=== PATIENT | female | born 1965 | race Caucasian/White ===

== ENCOUNTER → 2016-09-01 | Outpatient (CLI) | payer OTHER ==
--- NOTE | 2016-09-01 12:18 | CT ---
EXAMINATION TYPE: CT ChestAbdPelvis w con DATE OF EXAM: 09/01/2016 COMPARISON: Previous study dated 02/29/2016. HISTORY: Patient has no complaints at time of service. Follow up study for known ovarian CA. CT DLP: 726.9 mGycm Automated exposure control for dose reduction was used. TECHNIQUE: Helical acquisition through the abdomen and pelvis was obtained without oral contrast but following the intravenous administration of 100 mL of Omnipaque 300. The data was formatted in the a xial, coronal and sagittal projections. FINDINGS: The lungs are clear. There is no significant axillary, internal mammary, mediastinal or hilar adenopathy. There is no pleu ral or pericardial fluid. The heart is upper limits of normal in size. Within the abdomen, there is mild fatty infiltration of the liver. The spleen and gallbladder are nor mal. Both adrenal glands are normal. The right kidney is normal. There is a stable 6.3 mm low attenuating lesion in the anterior aspect of the mid polar region of the left kidney. This is too small accurately characterize. The pancreas is normal. There is no significant retroperitoneal, iliac or inguinal adenopathy. The uterus and ovaries are not visualized. The bladder is unremarkable. There is no significant diverticular change and there is no radiographic evidence of diverticulitis. The appendix is normal. There is a midline ventral hernia above the level of the umbilicus with a 27 mm mouth. This contains nonobstructed small bowel. The remainder the small bowel looks normal. No free fluid and no free air is seen. There is minimal hypertrophic spondylosis within the dorsal spine. No bony destructive lesion is seen . IMPRESSION: 1. NO EVIDENCE OF RECURRENT OR METASTATIC CANCER. 2. FATTY INFILTRATION OF THE LIVER. 3. STABLE, 6.3 MM LESION IN THE MID POLAR REGION OF THE LEFT KIDNEY TOO SMALL TO CHARACTERIZE ACCURAT PING. 4. MIDLINE VENTRAL HERNIA CONTAINING UNOBSTRUCTED SMALL BOWEL, UNCHANGED FROM PREVIOUS.
== END | disposition home or self-care (01) ==
LOC: RADPROMAIN 11:37
PROVIDERS: ATTEND Internal Medicine Hematology & Oncology
DX: C56.9 Malignant neoplasm of unspecified ovary (principal); K76.0 Fatty (change of) liver, not elsewhere classified; K43.9 Ventral hernia without obstruction or gangrene; N28.9 Disorder of kidney and ureter, unspecified
CPT/HCPCS: 71260; 74177; Q9967; J1642

== ENCOUNTER → 2017-04-02 | Outpatient (CLI) | payer BC ==
--- NOTE | 2017-04-02 09:45 | CT ---
EXAMINATION TYPE: CT ChestAbdPelvis w con DATE OF EXAM: 04/02/2017 COMPARISON: 09/01/2016 HISTORY: Patient has no complaints at time of study. Follow up study for known ovarian CA. CT DLP: 1436 mGycm. Automated Exposure Control for Dose Reduction was Utilized. CONTRAST: CT scan of the thorax, abdomen and pelvis is performed with IV Contrast, patient injected with 100 mL of Omnipaque 300. FINDINGS: LUNGS: The lungs are grossly clear, there is no concerning parenchymal mass or nodule identified. T here is no pleural effusion or pneumothorax seen. The tracheobronchial tree is patent. MEDIASTINUM: There are no greater than 1 cm hilar or mediastinal lymph nodes. No pericardial effusi on is seen. Right-sided Mediport terminates in the superior vena cava/right atrial junction. There i s a normal anatomic branch pattern of the great vessels. OTHER: No suspicious osseous lesions. No supraclavicular adenopathy. LIVER/GB: Hepatic parenchyma is diffusely hypoattenuated in comparison to that of the spleen, most co mmonly seen in hepatic steatosis. This finding limits evaluation for hepatic masses. No gross evidenc e of hepatic mass is seen. No intrahepatic biliary ductal dilatation. No cholelithiasis. PANCREAS: No significant abnormality is seen. SPLEEN: No significant abnormality is seen. ADRENALS: No significant abnormality is seen. KIDNEYS: The previously seen approximately 6 mm hypoattenuated cortical lesion of the anterior left m idpole of the kidney is similar and too small to accurately characterize. BOWEL: Ventral abdominal hernia described below. No evidence of bowel dilatation. Surgical anastomoti c site of the left mid abdomen is noted within small bowel. GENITAL ORGANS: There is surgical absence of the uterus and ovaries. No local soft tissue mass is see n to suggest neoplastic recurrence. Precervical soft tissues are unremarkable. Urinary bladder pisano appear smooth. No evidence of rectal thickening. Mesial rectal fat is clear. LYMPH NODES: No greater than 1cm abdominal or pelvic lymph nodes are appreciated. No pelvic sidewall, external iliac, or internal iliac adenopathy. Multiple nonenlarged periaortic lymph nodes are seen i n scattered mesenteric nonenlarged lymph nodes, similar to the prior exam. OSSEOUS STRUCTURES: Minimal multilevel degenerative changes of the visualized thoracolumbar and lumbo sacral spine are noted. No suspicious osseous lesions. Stable punctate probable bone island in the le ft femoral head is noted. OTHER: There is redemonstration of a ventral abdominal hernia superimposed upon diastases recti conta ining approximate 3.9 cm wide neck. This extends over a 0.6 cm in craniocaudal dimension and contains loops of small bowel. No evidence of entrapment on CT as there is no proximal dilatation or pneumato sis intestinalis. No decompression of the exiting loops. IMPRESSION: 1. No evidence of visceral metastasis, adenopathy, or osseous metastasis within the chest, abdomen or pelvis. 2. Redemonstration of hepatic steatosis, too small to accurately characterize left renal lesion, and ventral abdominal hernia containing loops of small bowel without dilatation to suggest current incarc eration.
== END | disposition home or self-care (01) ==
LOC: RADPROMAIN 08:28
PROVIDERS: ATTEND Internal Medicine Hematology & Oncology
DX: K76.0 Fatty (change of) liver, not elsewhere classified (principal); K43.9 Ventral hernia without obstruction or gangrene; N32.89 Other specified disorders of bladder; C56.2 Malignant neoplasm of left ovary; Z88.8 Allergy status to other drugs, medicaments and biological substances
CPT/HCPCS: 71260; 74177; Q9967; J1642

== ENCOUNTER → 2018-02-17 | Outpatient (CLI) | payer BC ==
--- NOTE | 2018-02-17 13:45 | CT ---
EXAMINATION TYPE: CT ChestAbdPelvis w con DATE OF EXAM: 02/17/2018 INDICATION: Follow up for ovarian CA. COMPARISON: 04/02/2017 CT DLP: 645.7 mGycm CONTRAST: Performed with Oral Contrast and with IV Contrast, patient injected with 100 mL of Isovue 300. TECHNIQUE: Axial images at 5 mm thick sections. Reconstructed images in the coronal plane. Delayed images through the kidneys. FINDINGS: CT CHEST: Portion of the thyroid visualized is normal. No suspicious lung nodules or focal infiltrates are present. No enlarged mediastinal or hilar adenopathy is evident. The ascending aorta diameter at the level of the main pulmonary artery is 3. cm. The main pulmonary artery diameter at the bifurcation is 1.[address] ABDOMEN: There is an anterior abdominal wall hernia in periumbilical region containing loops of co marcos. No obstruction is evident. A second more superior herniation contains more loops of bowel withou t obstruction Liver: Normal Spleen: Normal Pancreas: Normal Adrenal glands: The adrenal glands are normal. Gallbladder: Normal Kidneys: No masses are evident. No hydronephrosis is present. No cysts are present. Delayed images were obtained through the kidneys, which remain unremarkable. Aorta: Normal Inferior vena cava: Normal. CT PELVIS: Loops of bowel within the abdomen and pelvis are normal. There are loops of bowel which are incom pletely distended or lack oral contrast limiting their evaluation. Fecal debris is in the distal colo n. Appendix: Normal as visualized. Urinary bladder: Normal. Genitourinary structures: Uterus and ovaries are surgically absent. No suspicious masses or fluid col lections or omental caking is evident. Osseous structures: No suspicious lytic or sclerotic lesions. IMPRESSIONS: 1. No suspicious changes to suggest recurrent or metastatic ovarian carcinoma. 2. Anterior abdominal wall hernia containing nonobstructed loops of bowel
== END | disposition home or self-care (01) ==
LOC: RADCTMAIN 07:04
PROVIDERS: ATTEND Internal Medicine Hematology & Oncology
DX: Z03.89 Encounter for observation for other suspected diseases and conditions ruled out (principal); C56.2 Malignant neoplasm of left ovary; K43.9 Ventral hernia without obstruction or gangrene; Z88.8 Allergy status to other drugs, medicaments and biological substances
CPT/HCPCS: 71260; 74177; J1642; Q9967

== ENCOUNTER → 2018-08-24 | Outpatient (CLI) | payer BC ==
--- NOTE | 2018-08-24 15:20 | CT ---
EXAMINATION TYPE: CT ChestAbdPelvis w con DATE OF EXAM: 08/24/2018 COMPARISON: PET/CT February 10, 2015. CT chest abdomen pelvis February 17, 2018 and older studies. HISTORY: Follow up ovarian cancer. CT DLP: 730.6 mGycm. Automated Exposure Control for Dose Reduction was Utilized. CONTRAST: CT scan of the thorax, abdomen and pelvis is performed with oral and with IV Contrast, patient inject ed with 100 mL of Isovue M300. FINDINGS: LUNGS: The lungs are grossly clear, there is no concerning parenchymal mass or nodule identified. T here is no pleural effusion or pneumothorax seen. The tracheobronchial tree is patent. MEDIASTINUM: There are no greater than 1 cm hilar or mediastinal lymph nodes. No cardiomegaly or pe ricardial effusion is seen. OTHER: Stable right internal jugular Mediport catheter terminating in SVC. LIVER/GB: No significant abnormality is appreciated. PANCREAS: No significant abnormality is seen. SPLEEN: No significant abnormality is seen. ADRENALS: No significant abnormality is seen. KIDNEYS: No significant abnormality is seen. BOWEL: Oral contrast stops just short of terminal ileum making evaluation of distal bowel suboptimal. No suspicious small or large bowel dilatation is present. GENITAL ORGANS: Uterus is surgically absent. Surgical clips in left pelvis are redemonstrated. LYMPH NODES: No greater than 1cm abdominal or pelvic lymph nodes are appreciated. OSSEOUS STRUCTURES: Some facet arthropathy lower lumbar spine. OTHER: Midline vertical scar is redemonstrated with bowel containing incisional hernia just above umb ilicus again seen. IMPRESSION: Redemonstration of surgical change from resection of left mid abdominal metastatic focus. No new mass or adenopathy identified to suggest neoplastic recurrence.
== END ==
LOC: RADCTMAIN 12:02
PROVIDERS: ATTEND Internal Medicine Hematology & Oncology
DX: C56.2 Malignant neoplasm of left ovary (principal); Z88.8 Allergy status to other drugs, medicaments and biological substances
CPT/HCPCS: 71260; 74177; Q9967 ×2

== ENCOUNTER → 2019-04-18 | Outpatient (CLI) | payer BC ==
--- NOTE | 2019-04-19 07:09 | CT ---
EXAMINATION TYPE: CT ChestAbdPelvis w con DATE OF EXAM: 04/18/2019 COMPARISON: CT chest abdomen and pelvis August 24, 2018 and older CTs. PET/CT dated February 10, 2015. HISTORY: Follow up for ovarian cancer. CT DLP: 809.5 mGycm. Automated Exposure Control for Dose Reduction was Utilized. CONTRAST: CT scan of the thorax, abdomen and pelvis is performed with oral and with IV Contrast, patient inject ed with 100ml mL of Isovue 300. FINDINGS: LUNGS: The lungs are grossly clear, there is no concerning parenchymal mass or nodule identified. T here is no pleural effusion or pneumothorax seen. The tracheobronchial tree is patent. MEDIASTINUM: There are no greater than 1 cm hilar or mediastinal lymph nodes. No pericardial effusi on is seen. Heart size stable and upper limits of normal. Coronary stents are felt present in the LA D and RCA distributions. OTHER: Stable right internal jugular Mediport catheter. LIVER/GB: No significant abnormality is appreciated. PANCREAS: No significant abnormality is seen. SPLEEN: No significant abnormality is seen. ADRENALS: No significant abnormality is seen. KIDNEYS: No significant abnormality is seen. BOWEL: Persistent ventral wall incisional hernia in the midline above the umbilicus containing contra st-filled small bowel loops seen best on coronal image 5. Oral contrast on current study reaches near level of the terminal ileum. No suspicious small or large bowel dilatation. GENITAL ORGANS: Uterus is surgically absent. Surgical clips left pelvis near axial image 106 are rede monstrated. Suspicious new 10 mm anterior left pelvic lesion axial image 108 on sagittal images is be tter seen external to the bladder with local mass effect for reference sagittal image 68 and coronal image 43. LYMPH NODES: No additional new greater than 1cm abdominal or pelvic lymph nodes are appreciated. Surg ical clips left periaortic region just before iliac bifurcation axial image 78 are redemonstrated. OSSEOUS STRUCTURES: Facet arthropathy lower lumbar spine again seen. OTHER: No significant additional abnormality is seen. IMPRESSION: New 1.0 cm left pelvic enhancing soft tissue focus strongly concerning for intraperitone al neoplastic recurrence.
== END | disposition home or self-care (01) ==
LOC: RADCTMAIN 14:24
PROVIDERS: ATTEND Internal Medicine Hematology & Oncology
DX: Z03.89 Encounter for observation for other suspected diseases and conditions ruled out (principal); C56.2 Malignant neoplasm of left ovary; R93.41 Abnormal radiologic findings on diagnostic imaging of renal pelvis, ureter, or bladder; Z88.8 Allergy status to other drugs, medicaments and biological substances
CPT/HCPCS: 71260; 74177; Q9967

== ENCOUNTER → 2019-08-15 | Outpatient (CLI) | payer BC ==
--- NOTE | 2019-08-15 16:11 | CT ---
EXAMINATION TYPE: CT ChestAbdPelvis w con DATE OF EXAM: 08/15/2019 COMPARISON: 04/18/2019 and 08/24/2018 HISTORY: Ovarian cancer. CT DLP: 703 mGycm. Automated Exposure Control for Dose Reduction was Utilized. CONTRAST: CT scan of the thorax, abdomen and pelvis is performed with IV Contrast, patient injected with 100 mL of Isovue M300. FINDINGS: LUNGS: The lungs are grossly clear, there is no concerning parenchymal mass or nodule identified. T here is no pleural effusion or pneumothorax seen. The tracheobronchial tree is patent. MEDIASTINUM: There are no greater than 1 cm hilar or mediastinal lymph nodes. No pericardial effusi on is seen. OTHER: Right-sided Mediport is redemonstrated. LIVER/GB: Hepatic parenchyma is diffusely hypoattenuated in comparison to that of the spleen, most co mmonly seen in hepatic steatosis. This finding limits evaluation for hepatic masses. No gross evidenc e of hepatic mass is seen. No intrahepatic biliary ductal dilatation. No radiopaque calculi in the ga llbladder on CT. PANCREAS: No significant abnormality is seen. SPLEEN: No significant abnormality is seen. ADRENALS: No significant abnormality is seen. KIDNEYS: Punctate to small to accurately characterize left renal lesion measures 4 mm in the anterior cortex of the midpole. No hydronephrosis of either kidney. BOWEL: Again the ventral wall incisional hernia contains loops of small bowel and closely opposing lo ops of large bowel are also seen. Correlate clinically for reducibility. GENITAL ORGANS: The uterus is surgically absent as is the left ovary with adnexal surgical clips on t he left. The right ovary is presumably surgically absent as it is not seen. LYMPH NODES: No greater than 1cm abdominal or pelvic lymph nodes are appreciated. OSSEOUS STRUCTURES: Nonspecific sclerotic foci are seen of the left femoral head. Mild multilevel deg enerative change of the spine. OTHER: There is a hyperdense, likely enhancing 1.4 x 1.2 cm nodule along the urinary bladder dome raúl sely associated with the redundant sigmoid colon on coronal image 39 however no definitive fistulizat ion is seen as there is no air in the urinary bladder at this time. Peritoneal implant again is a con sideration, especially given the interval growth. This previously measured 1.0 cm. IMPRESSION: 1. Interval growth of the hyperdense, likely enhancing, nodule along the left lateral urinary bladder dome closely abutting the sigmoid colon. Finding is highly concerning for solitary metastatic perit foote implant given the enlarging size. No current fistulization between the sigmoid colon and urinar y bladder is definitely seen at this time as there is no air in the urinary bladder. 2. Redemonstration of a bowel containing ventral abdominal hernia. Ensure clinical reducibility.
== END | disposition home or self-care (01) ==
LOC: RADCTMAIN 13:31
PROVIDERS: ATTEND Internal Medicine Hematology & Oncology
DX: K43.9 Ventral hernia without obstruction or gangrene (principal); C56.2 Malignant neoplasm of left ovary; Z88.8 Allergy status to other drugs, medicaments and biological substances
CPT/HCPCS: 71260; 74177; Q9967 ×2

== ENCOUNTER → 2019-09-27 | Outpatient (CLI) | payer BC ==
--- NOTE | 2019-09-27 13:41 | CT ---
EXAMINATION TYPE: CT ChestAbdPelvis w con DATE OF EXAM: 09/27/2019 COMPARISON: 08/15/2019 and 04/18/2019 HISTORY: 53-year-old female follow up ovarian cancer, abnormal prior TECHNIQUE: Contiguous axial scanning of the chest, abdomen, and pelvis performed with IV Contrast, pa tient injected with 100 mL of Isovue 300. Delayed images through the kidneys were obtained. Coronal/s agittal reconstructions performed. CT DLP: 1408 mGycm Automated exposure control for dose reduction was used. FINDINGS: CHEST: Are normal size without pericardial effusion. Aorta normal caliber with conventional chest branching anatomy. Right anterior chest wall injection p ort with catheter tip at the mid SVC level. No thoracic lymphadenopathy by CT size criteria. No consolidation or pleural effusion. No suspicious pulmonary nodules. ABDOMEN: There may be some degree of underlying fatty infiltration of the liver. Portal venous system is paten t. No focal liver lesion or biliary ductal dilatation. Gallbladder, adrenal glands, kidneys, spleen, pancreas appear within normal limits. There is a stable umbilical hernia containing a nonobstructed loop of small bowel. The hernia measure s 3.3 cm wide. No mesenteric or retroperitoneal lymphadenopathy. Staple line left mid abdomen from prior small bowel resection and reanastomosis. No dilated small bow el, free fluid, or free air. Moderate stool burden. Oral contrast progressed to the proximal transverse colon. No pericolic inflam matory change. Redundant distal sigmoid. PELVIS: Bladder distended. Irregular 1.8 x 1.7 cm soft tissue nodule along the left bladder dome serosa measu res 2.0 cm craniocaudal on coronal image 46. (Previously measured 1.5 x 1.4 x 1.8 cm on 08/15/2019 and 1.2 x 1.0 x 1.1 cm on 04/18/2019). Patient is status post hysterectomy and bilateral salpingo-oophore ctomies. Otherwise, no pelvic lymphadenopathy is seen. Surgical clips in the left side of the pelvis. No abnormal fluid collection in the pelvis. BONES: Mild degenerative change of both hips. Mild endplate spondylosis lower thoracic spine. Partially visu alized cervical spondylosis. No osseous destructive process. IMPRESSION: 1. CONTINUED SLOW ENLARGEMENT OF THE METASTATIC DEPOSIT ALONG THE LEFT BLADDER DOME. CURRENTLY MEASUR ING 2.0 X 1.8 X 1.7 CM ( COMPARED TO 1.2 X 1.1 X 1.0 CM BACK ON 04/18/2019). 2. OTHERWISE, NO OTHER SITES OF METASTATIC DISEASE ARE IDENTIFIED IN THE CHEST, ABDOMEN, OR PELVIS.
== END | disposition home or self-care (01) ==
LOC: RADCTMAIN 10:55
PROVIDERS: ATTEND Internal Medicine Hematology & Oncology
DX: N32.89 Other specified disorders of bladder (principal); C79.11 Secondary malignant neoplasm of bladder; C56.2 Malignant neoplasm of left ovary; Z88.8 Allergy status to other drugs, medicaments and biological substances
CPT/HCPCS: 71260; 74177; Q9967 ×2

== ENCOUNTER → 2019-11-17 | Outpatient (CLI) | payer BC ==
--- NOTE | 2019-11-17 11:48 | ECHOF ---
Referral Reason:Z01.818 pre chemo MEASUREMENTS -------- HEIGHT: 152.4 cm WEIGHT: 70.3 kg BP: RVIDd: 2.9 cm (< 3.3) IVSd: 1.1 cm (0.6 - 1.1) LVIDd: 3.5 cm (3.9 - 5.3) LVPWd: 1.1 cm (0.6 - 1.1) IVSs: 1.2 cm LVIDs: 2.8 cm LVPWs: 1.3 cm LA Diam: 2.8 cm (2.7 - 3.8) LAESV Index (A-L): 18.35 ml/m Ao Diam: 2.0 cm (2.0 - 3.7) AV Cusp: 2.0 cm (1.5 - 2.6) LA Diam: 3.1 cm (2.7 - 3.8) MV EXCURSION: 20.651 mm (> 18.000) MV EF SLOPE: 119 mm/s (70 - 150) EPSS: 0.3 cm MV E Claudy: 0.46 m/s MV DecT: 208 ms MV A Claudy: 0.50 m/s MV E/A Ratio: 0.92 RAP: 5.00 mmHg RVSP: 22.46 mmHg FINDINGS -------- Sinus rhythm. This was a technically good study. The left ventricular size is normal. Overall left ventricular systolic function is mildly impaired with, an EF between 45 - 50 %. The right ventricle is normal in size. The left atrial size is normal. The right atrial size is normal. The aortic valve is trileaflet, and appears structurally normal. No aortic stenosis or regurgitation. There is trace mitral regurgitation. Mild tricuspid regurgitation present. Right ventricular systolic pressure is normal at < 35 mmHg. There is no pulmonic regurgitation present. The aortic root size is normal. There is no pericardial effusion. CONCLUSIONS -------- 1. The left ventricular size is normal. 2. Overall left ventricular systolic function is mildly impaired with, an EF between 45 - 50 %. 3. The right ventricle is normal in size. 4. The left atrial size is normal. 5. The right atrial size is normal. 6. There is trace mitral regurgitation. 7. Mild tricuspid regurgitation present. ELECTRICAL ELECTRONICS TECHNICIAN: Hoda Abdi RDCS
== END | disposition home or self-care (01) ==
LOC: RADECHMAIN 08:17
PROVIDERS: ATTEND Internal Medicine Hematology & Oncology
DX: Z01.818 Encounter for other preprocedural examination (principal); I07.1 Rheumatic tricuspid insufficiency; Z88.8 Allergy status to other drugs, medicaments and biological substances
CPT/HCPCS: 93306

== ENCOUNTER → 2019-12-02 | Outpatient (CLI) | payer BC ==
--- NOTE | 2019-12-02 16:04 | NM ---
EXAMINATION TYPE: NM rest MUGA chemo DATE OF EXAM: 12/02/2019 COMPARISON: NONE HISTORY: 54-year-old female Z79.88, exposure to chemotherapy. Technique: Following administration of 3ml PYP 25.7 mCi Tc 99m Sodium pertechnetate. RUSSIAN images obtai xochitl post injection. FINDINGS: Heart rate was 63 BPM. A total beats counted 961. Accepted beats falling within the appropriate narro w range was 960. Gated images are not submitted. Ejection fraction 54.8% IMPRESSION: LVEF calculated at 54.8%.
== END | disposition home or self-care (01) ==
LOC: RADNMMAIN 12:52
PROVIDERS: ATTEND Internal Medicine Hematology & Oncology
DX: Z08 Encounter for follow-up examination after completed treatment for malignant neoplasm (principal); Z92.21 Personal history of antineoplastic chemotherapy; Z88.8 Allergy status to other drugs, medicaments and biological substances
CPT/HCPCS: 78472; A9560

== ENCOUNTER → 2020-01-06 | Outpatient (CLI) | payer BC ==
--- NOTE | 2020-01-06 16:25 | CT ---
EXAMINATION TYPE: CT ChestAbdPelvis w con DATE OF EXAM: 01/06/2020 COMPARISON: CT chest abdomen pelvis 09/27/2019 HISTORY: Ovarian Cancer CT DLP: 885.60 mGycm Automated exposure control for dose reduction was used. CONTRAST: CT scan of the chest, abdomen and pelvis is performed with Oral Contrast and with IV Contrast, patien t injected with 100 ml mL of Isovue 300. FINDINGS: LUNGS: Lungs are grossly clear. No concerning parenchymal mass or nodule identified. No pleural effus ion. No pneumothorax. The tracheobronchial tree is patent. MEDIASTINUM/SOFT TISSUES: No axillary, hilar, or mediastinal lymphadenopathy greater than 1 cm. Cardi ac size is normal. No pericardial effusion. No thoracic aortic aneurysm. LIVER: Fatty liver. BILIARY SYSTEM: Normal. PANCREAS: Normal. SPLEEN: Normal size. Heterogenous appearance likely due to phase of contrast. ADRENALS: Normal. KIDNEYS: Normal. BOWEL: No evidence of obstruction. The known metastatic deposits along the left urinary bladder dome demonstrates interval increase in size, and is now contiguous with the posterior inferior aspect of the adjacent sigmoid colon, with loss of fat plane, and mild inferior sigmoid colonic wall thickening anterior to the contiguous region with the mass (8:71). Redemonstrated umbilical hernia containing n onobstructed loop of small bowel. PERITONEUM: There is increased peritoneal thickening and nodularity at the left lateral aspect of th e left pelvic metastatic deposit (3:102, 7:41). No pneumoperitoneum. No free fluid. LYMPH NODES: No lymphadenopathy. PELVIS: Status post hysterectomy and bilateral single nephrectomy. Left pelvic surgical clips. The me tastatic deposits at the left aspect of the urinary bladder dome again demonstrates interval increase in size, measuring 2.7 x 2.6 x 2.8 cm (3:103), previously measuring 1.5 x 1.5 x 2.0 cm on 09/27/2019 CT comparison. There is increased peritoneal thickening and nodularity, and contact of the adjacent s igmoid colon with inferior colonic wall thickening as described above. VASCULATURE: No abdominal aortic aneurysm. MUSCULOSKELETAL: No aggressive osseous destructive lesions. IMPRESSION: 1. Again interval increase in size of the metastatic ovarian cancer deposit at the left urinary bladd er dome, now with loss of fat plane and inferior colonic wall thickening of the adjacent sigmoid colo n most likely representing invasion. There is also increased adjacent metastatic peritoneal thickenin g and nodularity in the region of the metastatic deposit. 2. Fatty liver. 3. No metastatic ovarian cancer of the chest.
== END | disposition home or self-care (01) ==
LOC: RADCTMAIN 10:20
PROVIDERS: ATTEND Internal Medicine Hematology & Oncology
DX: C79.11 Secondary malignant neoplasm of bladder (principal); C78.6 Secondary malignant neoplasm of retroperitoneum and peritoneum; K76.0 Fatty (change of) liver, not elsewhere classified; K66.8 Other specified disorders of peritoneum; K63.89 Other specified diseases of intestine; C56.2 Malignant neoplasm of left ovary; Z88.8 Allergy status to other drugs, medicaments and biological substances
CPT/HCPCS: 71260; 74177; Q9967

== ENCOUNTER → 2020-04-12 | Outpatient (CLI) | payer BC ==
--- NOTE | 2020-04-12 22:34 | CT ---
EXAMINATION TYPE: CT abdomen pelvis w con DATE OF EXAM: 04/12/2020 COMPARISON: 01/06/2020 HISTORY: Abnormal blood results, Hx of ovarian CA CT DLP: 881.6 mGycm Automated exposure control for dose reduction was used. CONTRAST: Performed with IV Contrast, patient injected with 100 mL of Isovue 300. Images were obtained from the diaphragm to the floor the pelvis with oral and IV contrast. Lung bases are clear. There is no pleural effusion. Heart size is normal. There is no pericardial eff usion. Liver spleen pancreas stomach appear intact. The bile ducts are not dilated. Gallbladder is slightly contracted. There is no adrenal mass. Kidneys show satisfactory contrast opacification. There is no hydronephrosi s. There is large epigastric slightly incarcerated ventral hernia that contains small bowel. The open ing is 2.7 cm. Hernia measures 5 cm. I see no sign of a bowel obstruction. There is normal contrast o pacification of the small bowel. There is no retroperitoneal adenopathy. There is broad-based umbilic al hernia that contains small bowel. No bowel obstruction. There is hysterectomy. Bladder distends smoothly. There is no inguinal hernia. There is no evidence o f a pelvic mass. I see no pelvic lymphadenopathy. Appendix is inferior and appears normal. There are surgical clips on the left side pelvic sidewall. There is no mesenteric edema. There is no ascites or free air. There is no bowel obstruction. Lumbar vertebra have normal spacing and alignment. Posterior elements are intact. There is no compression fr acture. Bony pelvis is intact. The hip joints are intact. IMPRESSION: There is epigastric and umbilical hernia unchanged compared to old exam. No evidence of recurrent carla or. There is clearing of the 2.6 cm rounded mass at the dome of the urinary bladder on the left side compared to old exam.
== END | disposition home or self-care (01) ==
LOC: RADCTMAIN 15:22
PROVIDERS: ATTEND Internal Medicine Hematology & Oncology
DX: K42.9 Umbilical hernia without obstruction or gangrene (principal); K43.9 Ventral hernia without obstruction or gangrene; N32.89 Other specified disorders of bladder; C56.2 Malignant neoplasm of left ovary; Z88.8 Allergy status to other drugs, medicaments and biological substances
CPT/HCPCS: 82565; 84520; 74177; 36415; Q9967

== ENCOUNTER → 2020-07-12 | Outpatient (CLI) | payer BC ==
--- NOTE | 2020-07-12 12:07 | CT ---
EXAMINATION TYPE: CT ChestAbdPelvis w con DATE OF EXAM: 07/12/2020 COMPARISON: Most recent CT January 06, 2020 and older CTs HISTORY: Ovarian cancer, observation of mets. Chemotherapy and dated April 2020 CT DLP: 950.50 mGycm. Automated Exposure Control for Dose Reduction was Utilized. CONTRAST: CT scan of the thorax, abdomen and pelvis is performed with oral and with IV Contrast, patient inject ed with 100 ml mL of Isovue 300. FINDINGS: LUNGS: The lungs remain grossly clear, there is no concerning new parenchymal mass or nodule identifi ed. There is no pleural effusion or pneumothorax seen bilaterally. The tracheobronchial tree remai ns patent. MEDIASTINUM: There are no new greater than 1 cm hilar or mediastinal lymph nodes. No pericardial ef fusion is seen. Heart size stable and upper limits of normal. OTHER: Stable right internal jugular Mediport catheter. LIVER/GB: Liver remains diffusely low dense consistent with diffuse fatty infiltration. PANCREAS: No significant abnormality is seen. SPLEEN: No significant abnormality is seen. ADRENALS: No significant abnormality is seen. KIDNEYS: No significant abnormality is seen. BOWEL: Persistent ventral wall incisional hernia in the midline above the umbilicus containing contra st-filled small bowel loops seen best on coronal image. In current study. Oral contrast on current st udy reaches the cecum. No suspicious small or large bowel dilatation. GENITAL ORGANS: Uterus is surgically absent. Surgical clips left pelvis near axial image 105 are rede monstrated. No recurrent pelvic mass. LYMPH NODES: No additional new greater than 1cm abdominal or pelvic lymph nodes are appreciated. Surg ical clips left periaortic region just before iliac bifurcation axial image 76 are redemonstrated. OSSEOUS STRUCTURES: Facet arthropathy lower lumbar spine again seen. OTHER: No significant additional abnormality is seen. IMPRESSION: No recurrent or new mass or adenopathy identified to suggest active neoplastic recurrence .
== END | disposition home or self-care (01) ==
LOC: RADPROMAIN 08:27
PROVIDERS: ATTEND Internal Medicine Hematology & Oncology
DX: C56.9 Malignant neoplasm of unspecified ovary (principal)
CPT/HCPCS: 82565; 84520; 71260; 74177; 36415; Q9967

== ENCOUNTER → 2021-03-06 | Outpatient (CLI) | payer BC ==
--- NOTE | 2021-03-06 14:33 | CT ---
EXAMINATION TYPE: CT ChestAbdPelvis w con DATE OF EXAM: 03/06/2021 COMPARISON: CT 07/12/2020 HISTORY: follow up to ovarian CA CT DLP: 824 mGycm Automated exposure control for dose reduction was used. CONTRAST: CT scan of the chest, abdomen and pelvis is performed with Oral Contrast and with IV Contrast, patien t injected with 100 mL of Isovue 300. FINDINGS: Anterior abdominal wall defect is present, there are loops of bowel in close proximity to t he skin in the supraumbilical location similar to prior exam. LUNGS: The lungs are grossly clear, there is no concerning parenchymal mass or nodule identified. T here is no pleural effusion or pneumothorax seen. The tracheobronchial tree is patent. MEDIASTINUM: There are no greater than 1 cm hilar or mediastinal lymph nodes. No pericardial effusi on is seen. AORTA: No significant abnormality is seen. OTHER: There is a port in the right pectoral region coursing via a jugular approach to the level of the superior vena cava. LIVER/GB: No significant abnormality is appreciated. PANCREAS: No significant abnormality is seen. SPLEEN: No significant abnormality is seen. ADRENALS: No significant abnormality is seen. KIDNEYS: No significant abnormality is seen. REPRODUCTIVE ORGANS: Not seen. BOWEL: Retained fecal debris present throughout the distribution of the colon, correlate for fecal s tasis, no evident bowel obstruction, contrast material courses to the level of the proximal transvers e colon. FREE AIR: No Free Air visible. ASCITES: None seen. RETROPERITONEAL ADENOPATHY: No retroperitoneal adenopathy is seen. Surgical clip present in the retr operitoneum on the left LYMPH NODES: No greater than 1 cm abdominal or pelvic lymph nodes are appreciated. URINARY BLADDER: No significant abnormality is seen. PELVIC ADENOPATHY: None visualized. OSSEOUS STRUCTURES: No significant abnormality is seen. IMPRESSION: No significant interval change. No evident recurrence.
== END | disposition home or self-care (01) ==
LOC: RADPROMAIN 09:53
PROVIDERS: ATTEND Internal Medicine Hematology & Oncology
DX: C56.2 Malignant neoplasm of left ovary (principal)
CPT/HCPCS: 82565; 84520; 71260; 74177; J1642; Q9967

== ENCOUNTER → 2021-10-16 | Outpatient (CLI) | payer OTHER ==
--- NOTE | 2021-10-16 15:31 | CT ---
EXAMINATION TYPE: CT ChestAbdPelvis w con DATE OF EXAM: 10/16/2021 COMPARISON: CT 03/06/2021 HISTORY: h/o ovarian CA CT DLP: 809.4 mGycm Automated exposure control for dose reduction was used. CONTRAST: CT scan of the chest, abdomen and pelvis is performed with Oral Contrast and with IV Contrast, patien t injected with 70 mL of Isovue 300. FINDINGS: There is a port in the right pectoral region coursing via a jugular approach, distal tip in the superior vena cava LUNGS: The lungs are grossly clear, there is no concerning parenchymal mass or nodule identified. T here is no pleural effusion or pneumothorax seen. The tracheobronchial tree is patent. MEDIASTINUM: There are no greater than 1 cm hilar or mediastinal lymph nodes. No pericardial effusi on is seen. AORTA: No significant abnormality is seen. OTHER: No additional significant abnormality is seen. LIVER/GB: No significant abnormality is appreciated. PANCREAS: No significant abnormality is seen. SPLEEN: No significant abnormality is seen. ADRENALS: No significant abnormality is seen. KIDNEYS: No significant abnormality is seen. REPRODUCTIVE ORGANS: Not seen. BOWEL: Small umbilical hernia contains bowel loops similar to prior exam, no evident obstruction. FREE AIR: No Free Air visible. ASCITES: None seen. RETROPERITONEAL ADENOPATHY: No retroperitoneal adenopathy is seen. Retroperitoneal surgical clip is noted LYMPH NODES: No greater than 1 cm abdominal or pelvic lymph nodes are appreciated. URINARY BLADDER: No significant abnormality is seen. PELVIC ADENOPATHY: None visualized. OSSEOUS STRUCTURES: Degenerative disc changes are noted the lower lumbar spine. IMPRESSION: No evident recurrence, no significant change
== END | disposition home or self-care (01) ==
LOC: RADPROMAIN 09:53
PROVIDERS: ATTEND Internal Medicine Hematology & Oncology
DX: C56.2 Malignant neoplasm of left ovary (principal)
CPT/HCPCS: 82565; 84520; 71260; 74177; J1642; Q9967

== ENCOUNTER → 2022-03-20 | Outpatient (CLI) | payer OTHER ==
--- NOTE | 2022-03-20 12:04 | CT ---
EXAMINATION TYPE: CT ChestAbdPelvis w con DATE OF EXAM: 03/20/2022 COMPARISON: 10/16/2021 HISTORY: Ovarian cancer CT DLP: 818 mGycm CONTRAST: CT scan of the chest, abdomen and pelvis is performed with Oral Contrast and with IV Contrast, patien t injected with 70 mL of Isovue 300. CT Chest: LUNGS: The lungs are clear and free of infiltrate or atelectasis. No pulmonary nodule or mass is det ected. No pleural effusion or CT evidence of interstitial lung disease. MEDIASTINUM: Thoracic aorta is of normal caliber. The heart is not enlarged. No evidence for media stinal mass or adenopathy. HILAR STRUCTURES: No evidence for mass. No hilar adenopathy is appreciated. OTHER: No significant abnormality. CONTRAST CT ABDOMEN AND PELVIS FINDINGS: LIVER/GB: No calcified gallstones. No space occupying hepatic lesion. Biliary tree is of normal ca liber. PANCREAS: No inflammation. No distinct mass. SPLEEN: No splenic enlargement. No lesion seen. ADRENALS: No nodule. No thickening. KIDNEYS/BLADDER: No hydronephrosis. No nephrolithiasis. No distinct renal mass. BOWEL: Normal appendix. Normal bowel caliber. No inflammation. Umbilical hernia is again noted with a segment of small bowel. No evidence for obstruction. GENITAL ORGANS: Postoperative changes of hysterectomy and bilateral oophorectomy. No evidence for rec urrent mass. No evidence for free fluid within the pelvis. LYMPH NODES: No greater than 1cm abdominal or pelvic lymph nodes are appreciated. AORTA: No significant abnormality. OSSEOUS STRUCTURES: No significant abnormality is seen. OTHER: No significant additional abnormality is seen. IMPRESSION: 1. No evidence for tumor recurrence or metastatic disease. 2. Umbilical hernia is essentially unchanged.
== END | disposition home or self-care (01) ==
LOC: RADCTMAIN 09:29
PROVIDERS: ATTEND Internal Medicine Hematology & Oncology
DX: C56.2 Malignant neoplasm of left ovary (principal); K42.9 Umbilical hernia without obstruction or gangrene
CPT/HCPCS: 82565; 84520; 71260; 74177; 36415; Q9967 ×2

== ENCOUNTER → 2022-07-18 | Outpatient (CLI) | payer OTHER ==
--- NOTE | 2022-07-18 10:11 | CT ---
EXAMINATION TYPE: CT ChestAbdPelvis w con CT DLP: 909.3 mGycm, Automated exposure control for dose reduction was used. DATE OF EXAM: 07/18/2022 9:49 AM COMPARISON: Multiple most recent 03/20/2022 CLINICAL INDICATION:Female, 56 years old with history of C56.2; PHH, H/O OVARIAN CA, F/U Technique: Multiple axial images of the chest, abdomen, and pelvis were obtained. Two-dimensional cor onal and sagittal reconstructions were obtained. Contrast used:80 mL of Isovue 300 with IV Contrast, Oral contrast used: with Oral Contrast Findings: CHEST: LUNGS/ PLEURA: The lung parenchyma appears unremarkable. AIRWAY: Patent and unremarkable. HEART: Size within normal limits. MEDIASTINUM: No gross evidence of adenopathy. VASCULATURE: No aortic aneurysm. Right internal jugular central venous catheter with tip terminating within the inferior vena cava. MUSCULOSKELETAL: No acute osseous abnormalities. SOFT TISSUES/LYMPH NODES: Unremarkable. LOWER NECK: No significant findings. ABDOMEN: ABDOMEN LIVER: Unremarkable GALLBLADDER AND BILE DUCTS: Unremarkable. PANCREAS: Unremarkable. SPLEEN: Unremarkable. ADRENAL GLANDS: Unremarkable. KIDNEYS AND URETERS: No evidence of hydronephrosis or renal calculus. The ureters are unremarkable. PELVIS BLADDER: Unremarkable REPRODUCTIVE: Uterus and ovaries are surgically absent. ABDOMEN & PELVIS STOMACH AND BOWEL: No evidence of bowel obstruction. PERITONEUM: No evidence of pneumoperitoneum or free fluid. VASCULATURE: No evidence of aortic aneurysm. MUSCULOSKELETAL: No acute osseous abnormalities LYMPH NODES: No gross evidence for lymphadenopathy. SOFT TISSUE/ABDOMINAL WALL: Anterior abdominal wall hernia with loops of small bowel. No evidence for stimulation. Neck measures up to 3.9 cm in transverse dimension. IMPRESSION: 1. No acute thoracic or abdominal process. 2. Ventral wall hernia containing loops of small bowel. No evidence of strangulation. 3. No evidence for recurrent or metastatic disease.
== END | disposition home or self-care (01) ==
LOC: RADCTMAIN 07:31
PROVIDERS: ATTEND Internal Medicine Hematology & Oncology
DX: C56.2 Malignant neoplasm of left ovary (principal); K43.9 Ventral hernia without obstruction or gangrene; D70.2 Other drug-induced agranulocytosis; G62.0 Drug-induced polyneuropathy; K21.9 Gastro-esophageal reflux disease without esophagitis
CPT/HCPCS: 82565; 84520; 71260; 74177; 36415; Q9967

== ENCOUNTER → 2022-11-01 | Outpatient (CLI) | payer OTHER ==
--- NOTE | 2022-11-02 09:25 | PE ---
EXAMINATION TYPE: PET CT fusion skull to thigh DATE OF EXAM: 11/01/2022 CLINICAL INDICATION:Female, 57 years old with history of C56.2; TECHNIQUE: Following the intravenous administration of 9.6 mCi of F-18 FDG, whole body images are p erformed from the skull base to the midthigh. Images are reviewed on the computer in the coronal, ax ial, and sagittal planes. Reconstructed rotating images are created on independent workstation and r eviewed on the computer. A non-contrast CT is performed in conjunction with the PET scan. Glucose l evel 86 mg/dL COMPARISON: CT 10/17/2022, PET/CT 02/10/2015, FINDINGS: Mediastinal SUV mean is 1.5. Hepatic parenchyma SUV mean is 2.5. SKULL BASE AND NECK: No suspicious radiotracer activity. CHEST, MEDIASTINUM, AND HILAR REGION: No suspicious radiotracer activity. ABDOMEN AND PELVIS: No suspicious radiotracer activity. No FDG activity in the area of concern in the left bladder dome. Area measures and appears similar to prior CT measuring roughly 9 x 15 mm. MUSCULOSKELETAL STRUCTURES: No suspicious radiotracer activity. OTHER CT: Right chest wall [id number] with tip terminating superior vena cava. Ventral wall hernia containing loops of small bowel possibly:. No evidence for circulation of bowel obstruction. The [place] jed is surgically absent. Mild centrilobular emphysema changes. IMPRESSION: No suspicious FDG activity to suggest metastatic disease. No abnormal FDG activity within the left bl adder dome lesion. Consider cystoscopy with direct visualization.
== END | disposition home or self-care (01) ==
LOC: RADPETMAIN 11:02
PROVIDERS: ATTEND Internal Medicine Hematology & Oncology
DX: C56.2 Malignant neoplasm of left ovary (principal)
CPT/HCPCS: 78815; A9552

== ENCOUNTER → 2023-02-20 | Outpatient (CLI) | payer OTHER ==
--- NOTE | 2023-02-22 10:03 | PE ---
EXAMINATION TYPE: PET CT fusion skull to thigh DATE OF EXAM: 02/20/2023 CLINICAL INDICATION:Female, 57 years old with history of C56.2 Ovarian CA; TECHNIQUE: Following the intravenous administration of 11.9 mCi of F-18 FDG, whole body images are performed from the skull base to the midthigh. Images are reviewed on the computer in the coronal, a xial, and sagittal planes. Reconstructed rotating images are created on independent workstation and reviewed on the computer. A non-contrast CT is performed in conjunction with the PET scan. Glucose level 96 mg/dL CT DLP: 371.91 mGycm, Automated exposure control for dose reduction was used. COMPARISON: CT None, PET/CT 11/01/2022., FINDINGS: Mediastinal SUV mean is 2.4. Hepatic parenchyma SUV mean is 2.7. SKULL BASE AND NECK: No suspicious radiotracer activity. CHEST, MEDIASTINUM, AND HILAR REGION: No suspicious radiotracer activity. ABDOMEN AND PELVIS: No suspicious radiotracer activity. No FDG activity in the area of concern in the left bladder dome. Area measures and appears similar to prior CT measuring roughly 9 x 15 mm. MUSCULOSKELETAL STRUCTURES: No suspicious radiotracer activity. OTHER CT: Right chest wall [id number] with tip terminating superior vena cava. Ventral wall hernia containing loops of small bowel possibly:. No evidence for circulation of bowel obstruction. The [place] jed is surgically absent. Mild centrilobular emphysema changes. IMPRESSION: No suspicious FDG activity to suggest metastatic disease. No abnormal FDG activity within the left bl adder dome lesion. Consider cystoscopy with direct visualization. area of concern.
== END | disposition home or self-care (01) ==
LOC: RADPETMAIN 08:01
PROVIDERS: ATTEND Internal Medicine Hematology & Oncology
DX: C56.2 Malignant neoplasm of left ovary (principal)
CPT/HCPCS: 78815; A9552

== ENCOUNTER → 2023-05-22 | Outpatient (CLI) | payer OTHER ==
[2023-05-22 09:07] LABS: African American GFR (CKD) 78 (>60 ml/min/1.73 sqM); Blood Urea Nitrogen 22 mg/dL (7-17); Non-African American GFR(CKD) 68 (>60 ml/min/1.73 sqM)
--- NOTE | 2023-05-22 16:55 | CT ---
EXAMINATION TYPE: CT ChestAbdPelvis w con DATE OF EXAM: 05/22/2023 COMPARISON: 10/17/2022 HISTORY: Hx ovarian ca, pt states tumor markers are elevated. Error on Room 1 scanner would not allow 3 min delay to be done timely. Took to room 2 for completion of study. CT DLP: 1063.60 mGycm Automated exposure control for dose reduction was used. CONTRAST: CT scan of the chest, abdomen and pelvis is performed with Oral Contrast and with IV Contrast, patien t injected with 100 mL of Isovue 300. FINDINGS: EXAMINATION TYPE: CT ChestAbdPelvis w con DATE OF EXAM: 05/22/2023 COMPARISON: HISTORY: Hx ovarian ca, pt states tumor markers are elevated. Error on Room 1 scanner would not allow 3 min delay to be done timely. Took to room 2 for completion of study. CT DLP: 1063.60 mGycm Automated exposure control for dose reduction was used. CONTRAST: CT scan of the chest, abdomen and pelvis is performed with Oral Contrast and with IV Contrast, patien t injected with 100 mL of Isovue 300. FINDINGS: CT chest: There is no suspicious lung mass or nodule. There is no abnormal airspace/consolidative density or abnormal interstitial density. There is no pleural effusion, pleural thickening or pneumothorax. The great vessels and chest are normal there is no mediastinal, hilar or axillary adenopathy. No focal osseous lesions are seen. There is a Mediport catheter on the right tip of which is in the S VC/junction. CT abdomen and pelvis: Gallbladder is normal without distention, pericholecystic fluid, wall thickening or gallstone. There is no biliary ductal dilatation. There is no focal mass or organomegaly involving the liver, pancreas, spleen or adrenal glands.. There is no solid renal mass or hydronephrosis. There is no retroperitoneal adenopathy or hemorrhage in the caliber of the abdominal aorta is normal. The bowel loops are normal in caliber and there is no dilatation or obstruction. No inflammatory hargrove ges identified in the bowel wall and mesentery. There is no free intracranial air or fluid. The mass associated with the left aspect of the bladder dome has increased in the interval from 12 mm to 16 mm and is very suspicious for a serosal implant on the bladder dome. There is no free fluid within the pelvis. There are surgical absence of the uterus. No focal osseous lesions are seen. There is a small stable periumbilical hernia containing nonobstruc antony nonstrangulated bowel loops. IMPRESSION: 1. No evidence of metastatic disease in the chest. 2. Left bladder dome mass which has increased in the interval in size from 12 mm to 16 mm and is high ly suspicious for a serosal implant.
== END | disposition home or self-care (01) ==
LOC: RADCTMAIN 08:18
PROVIDERS: ATTEND Internal Medicine Hematology & Oncology
DX: N32.89 Other specified disorders of bladder (principal); C56.2 Malignant neoplasm of left ovary
CPT/HCPCS: 82565; 84520; 71260; 74177; 36415; Q9967

== ENCOUNTER → 2023-06-11 | Outpatient (CLI) | payer OTHER ==
--- NOTE | 2023-06-12 04:36 | PE ---
EXAMINATION TYPE: PET CT fusion skull to thigh DATE OF EXAM: 06/11/2023 COMPARISON: Most recent prior whole body CT May 22, 2023. Most recent PET/CT February 20, 2023 a nd older studies. HISTORY: Ovarian cancer progress study stage IIIB diagnosed January 02, 2012 completed chemotherapy in May 2020. Enlarging mass at top of bladder. TECHNIQUE: Following the intravenous administration of 9.88 mCi of F-18 FDG, whole body images are p erformed from the skull base to the midthigh. Images are reviewed on the computer in the coronal, ax ial, and sagittal planes. Reconstructed rotating images are created on independent workstation and r eviewed on the computer. A localization and attenuation correction CT is performed in conjunction w ith the PET scan. Blood glucose level was 88. SCAN: Subsequent Scan FINDINGS: SKULL BASE AND NECK: No new areas of abnormal hypermetabolic uptake. CHEST, MEDIASTINUM, AND HILAR REGION: No new areas of abnormal hypermetabolic uptake. ABDOMEN AND PELVIS: Normal excretion is present. Uterus is surgically absent. No new areas of abnorma l hypermetabolic uptake. Oval lesion along the left superior aspect of bladder axial image 220 has si milar size and appearance to prior PET/CT image 205 OSSEOUS STRUCTURES: No new areas of abnormal hypermetabolic uptake. OTHER CT: Stable right-sided Mediport catheter. Persistent ventral wall hernia near the leg is contai brea obstructed bowel. Surgical change to left-sided bowel loops redemonstrated IMPRESSION: No new abnormal hypermetabolic uptake to suggest active metastatic recurrence. No signifi cant change from most recent prior PET/CT
== END | disposition home or self-care (01) ==
LOC: RADPETMAIN 07:20
PROVIDERS: ATTEND Internal Medicine Hematology & Oncology
DX: C56.9 Malignant neoplasm of unspecified ovary (principal)
CPT/HCPCS: 78815; A9552

== ENCOUNTER → 2023-09-03 | Outpatient (CLI) | payer OTHER ==
--- NOTE | 2023-09-05 08:23 | PE ---
EXAMINATION TYPE: PET CT fusion skull to thigh DATE OF EXAM: 09/03/2023 CLINICAL INDICATION:Female, 57 years old with history of C56.2 OVARIAN CANCER; TECHNIQUE: Following the intravenous administration of 11.64 mCi of F-18 FDG, whole body images are performed from the skull base to the midthigh. Images are reviewed on the computer in the coronal, axial, and sagittal planes. Reconstructed rotating images are created on independent workstation and reviewed on the computer. A non-contrast CT is performed in conjunction with the PET scan. Glucose level 84 mg/dL CT DLP: 381 mGycm, Automated exposure control for dose reduction was used. COMPARISON: CT None, PET/CT 06/11/2023, FINDINGS: Mediastinal SUV mean is 3.1. Hepatic parenchyma SUV mean is 2.8. SKULL BASE AND NECK: No suspicious radiotracer activity. CHEST, MEDIASTINUM, AND HILAR REGION: No suspicious radiotracer activity. ABDOMEN AND PELVIS: No suspicious radiotracer activity. No FDG activity in the area of concern in the left bladder dome. Area measures and appears similar to prior CT measuring roughly 9 x 15 mm. MUSCULOSKELETAL STRUCTURES: No suspicious radiotracer activity. OTHER CT: Right chest wall [id number] with tip terminating superior vena cava. Ventral wall hernia containing loops of small bowel possibly:. No evidence for circulation of bowel obstruction. The [place] jed is surgically absent. Mild centrilobular emphysema changes. IMPRESSION: No suspicious FDG activity to suggest metastatic disease.
== END | disposition home or self-care (01) ==
LOC: RADPETMAIN 07:11
PROVIDERS: ATTEND Internal Medicine Hematology & Oncology
DX: C56.2 Malignant neoplasm of left ovary (principal)
CPT/HCPCS: 78815; A9552